=== PATIENT | female | born 1950 | race Caucasian/White ===

== ENCOUNTER → 2020-04-06 13:54 | Outpatient (CLI) | payer MEDICARE, OTHER, SELFPAY ==
--- NOTE | 2020-04-06 | DI.MG.S_ITS ---
BILATERAL DIGITAL SCREENING MAMMOGRAM 3D/2D WITH CAD: 04/06/2020 CLINICAL: Routine screening. Comparison is made to exams dated: 01/24/2011 mammogram, 02/01/2011 mammogram, and 04/07/2014 mammogram - [facility]. The tissue of both breasts is extremely dense, which lowers the sensitivity of mammography. Current study was also evaluated with a Computer Aided Detection (CAD) system. No significant masses, calcifications, or other findings are seen in either breast. There has been no significant interval change. IMPRESSION: NEGATIVE There is no mammographic evidence of malignancy. A 1 year screening mammogram is recommended. This exam was interpreted at Station ID: [id number]. NOTE: For mammograms, a report in lay terms will be sent to the patient. Approximately 15% of breast malignancies will not be visualized mammographically. In the management of a palpable breast mass, a negative mammogram must not discourage biopsy of a clinically suspicious lesion. Electronically Signed By: Joanne diaz/marcelo:04/12/2020 13:36:52 letter sent: Normal Exam ACR BI-RADS Category 1: Negative [id number]
== END ==
PROVIDERS: Family Provider Nurse Practitioner Family; PCP Family Medicine; Referring Provider Family Medicine; Visit Provider Family Medicine
DX: Z12.31 Encounter for screening mammogram for malignant neoplasm of breast (principal)
CPT/HCPCS: 77063; 77067

== ENCOUNTER 2020-05-13 05:38 | Emergency (ER) | payer MEDICARE, OTHER, SELFPAY ==
--- NOTE | 2020-05-13 05:43 | ED.EAR ---
HPI - Ear Problem General Chief complaint: Ear Stated complaint: Has an ear infection Time Seen by Provider: 05/13/20 05:43 Source: patient Mode of arrival: Ambulatory Limitations: no limitations History of Present Illness HPI Narrative: This is a 69-year-old female who comes to the emergency department with complaint of right ear pain. Patient states started 2:00 a.m.. She does not appreciate any swelling, no redness or warmth. No decrease of hearing, patient has not had any discharge. She states that she has not tried any [id number]-[id number] pain medications. Patient does use Q-tips but usually just use the mom the outer ear. She does not swim. She has not had any foreign bodies. She has not had similar symptoms in the past. She does not have any pain radiating elsewhere. Patient denies any other medical issues. She denies any current medications. She denies any allergies to medications. Related Data Home Medications Medication Instructions Recorded Confirmed ESTROGENS CONJUGATED VAG - 0 VAGINAL * DOSE/FREQUENCY #0 02/22/07 (Premarin) Venlafaxine Hydrochloride (Effexor) 0 PO * UK DOSE/FREQUENCY #0 02/22/07 BusPIRone Hydrochloride (BUSPAR~) 10 mg PO #0 tab 01/18/13 Review of Systems Review of Systems ROS Unobtainable: All systems reviewed & are unremarkable except as noted in HPI and below Patient History Social History Smoking Status: Never smoker Exam Narrative Exam Narrative: GEN: well nourished, well appearing female, alert and oriented x 3, patient appears to be in mild distress. HEENT: Atraumatic, pupils are equal round reactive to light, extraocular movements are intact, nares are clear, external pinna has no changes bilaterally, Left TM is are clear, right TM has erythema and some mild swelling of the canal, there is some erythema along the edge of the TM but no bulge, fluid collection or loss of light reflex. Throat is clear without any exudates, erythema, tonsillar enlargement or uvular deviation HEART: Regular rate and rhythm without murmur, clicks, rubs. No carotid bruits, pulses are equal in upper and lower extremities LUNGS:Lungs clear to auscultation, no wheezes, rales, crackles, chest moves symmetrically ABD:bowel sounds normal, soft, non-tender, no guarding, rebound, rigidity, no masses noted, no hepatosplenomegaly MSCL: Non-tender, full range of motion, normal gait NEURO:CN 2-12 intact, sensation normal SKIN: no erythema. Initial Vital Signs Initial Vital Signs: Vital Signs Temperature 97.1 F L 05/13/20 05:50 Pulse Rate 81 05/13/20 05:50 Respiratory Rate 17 05/13/20 05:50 Blood Pressure 141/63 H 05/13/20 05:50 Pulse Oximetry 97 05/13/20 05:50 Course Orders Ordered: Discontinued Medications Ibuprofen (Ibuprofen 400 Mg Tablet) 800 mg PO NOW ONE Stop: 05/13/20 05:50 Last Admin: 05/13/20 05:57 Dose: 800 mg Documented by: BRI Lidocaine/Sodium Bicarbonate (Lido 1%/Sod Bicarb 8.4% (10ml) 10 Ml Syringe) 10 ml INJ NOW ONE Stop: 05/13/20 05:50 Last Admin: 05/13/20 05:59 Dose: 1 ml Documented by: BRI Ofloxacin (Ofloxacin 0.3% Ophth Prepack) 1 bottle MISC SEEINSTR ONE Stop: 05/13/20 05:50 Last Admin: 05/13/20 05:58 Dose: 5 drops Documented by: BRI Vital Signs Vital signs: Vital Signs - 8 hr 05/13/20 05:50 Temperature 97.1 F L Pulse Rate 81 Respiratory Rate 17 Blood Pressure 141/63 H Pulse Oximetry 97 Discharge Plan Departure Patient Disposition: Home Clinical Impression: Otitis externa Instructions: DI for Otitis Externa Activity Restrictions/Additional Instructions: Follow up with your physician if your symptoms are not improving in the next 2-3 days. Continue tylenol and/or ibuprofen as needed. Use ofloxacin drops, 5 drops into the right ear twice daily x 7 days Return to the ER for fevers, increasing swelling or pain, loss of hearing, swelling of the face, neck or throat or other new or concerning symptoms. Prescriptions: No Action ESTROGENS CONJUGATED VAG - (Premarin) 0 Vaginal * UK DOSE/FREQUENCY Qty: 0 RF: 0 Venlafaxine Hydrochloride (Effexor) 0 PO * UK DOSE/FREQUENCY Qty: 0 RF: 0 BusPIRone Hydrochloride (BUSPAR~) 10 mg PO Qty: 0 RF: 0 Referrals: Rebecca Meehan DO [Primary Care Provider] -
[2020-05-13 05:50] VITALS: BP 141/63; PULSE 81; RESP 17; TEMP 36.2; O2SAT 97; BMI 21.2
[2020-05-13] MEDS: IBUPROFEN 400 MG TABLET 800 MG PO (05:57)
[2020-05-13] MEDS: OFLOXACIN 0.3% OPHTH PREPACK 1 BOTTLE MISC (05:58)
[2020-05-13] MEDS: LIDO 1%/SOD BICARB 8.4% (10ML) 10 ML SYRINGE INJ (05:59)
== END 2020-05-13 06:32 | disposition home or self-care (01) ==
PROVIDERS: Emergency Provider Emergency Medicine; Family Provider Nurse Practitioner Family; PCP Family Medicine
DX: H60.91 Unspecified otitis externa, right ear (principal)
CPT/HCPCS: 99281; 99283

== ENCOUNTER → 2021-04-24 13:54 | Outpatient (ROUT) | payer MEDICARE, OTHER, SELFPAY ==
[2021-04-24 15:09] LABS: Influenza A - CEPHEID Flu A NEGATIVE (NEGATIVE); Influenza B - CEPHEID Flu B NEGATIVE (NEGATIVE)
== END ==
PROVIDERS: Family Provider Nurse Practitioner Family; PCP Family Medicine; Visit Provider Internal Medicine
DX: R05.8 Other specified cough (principal)
CPT/HCPCS: 87502

== ENCOUNTER 2022-06-08 23:43 | Emergency (ER) | payer MEDICARE, OTHER, SELFPAY ==
[2022-06-08 23:49] VITALS: BP 185/90; PULSE 85; RESP 22; TEMP 36.6; O2SAT 97; BMI 22.6
[2022-06-09 00:33] LABS: Add Manual Diff / Slide Review NO; Basophils Absolute Auto 0 /uL (0-100); Basophils Percent Auto 0.5 % (0-2); Eosinophils Absolute Auto 200 /uL (0-450); Eosinophils Percent Auto 2.8 % (2-4); Hematocrit 39.5 % (36-46); Hemoglobin 13.5 g/dL (12.0-16.0); Lymphocytes Absolute Auto 2600 /uL (1100-4500); Lymphocytes Percent Auto 38.7 % (25-40); Mean Corpuscular HGB Conc 34.3 % (30-36); Mean Corpuscular Hemoglobin 31.6 PG (26-34); Mean Corpuscular Volume 92.2 fL (80-100); Monocytes Absolute Auto 600 /uL (0-900); Monocytes Percent Auto 9.2 % (3-14); Neutrophils Absolute Auto 3300 /uL (1500-7000); Neutrophils Percent Auto 48.8 % (50-75); Platelet Count 232 X10^3/uL (150-400); Red Blood Cell Count 4.28 X10^6/uL (4.0-5.2); Red Cell Distribution Width 12.8 % (11.6-14.8); White Blood Cell Count 6.7 X10^3/uL (4.5-11.0)
[2022-06-09 00:37] LABS: Alanine Aminotransferase 166 IU/L (<35); Albumin 4.4 g/dL (3.5-5.0); Albumin Globulin Ratio 1.4 (1.0-2.8); Alkaline Phosphatase 181 U/L (38-126); Aspartate Aminotransferase 319 IU/L (14-36); BUN Creatinine Ratio 30.4 (6-22); Bilirubin Total 0.5 mg/dL (0.2-1.3); Blood Urea Nitrogen 21 mg/dL (7-17); Calcium 9.4 mg/dL (8.4-10.2); Carbon Dioxide 31 mmol/L (22-32); Chloride 100 mmol/L (98-107); Estimated Glomerular Filt Rate > 60 mL/min (>60); Globulin 3.1 g/dL (1.7-4.1); Glucose 94 mg/dL (80-110); HEMOLYSIS 32 (0-50); Lipase 315 U/L (23-300); Sodium 136 mmol/L (137-145); Total Protein 7.5 g/dL (6.3-8.2)
--- NOTE | 2022-06-09 00:42 | DI.CT.S_ITS ---
PROCEDURE: CT ABDOMEN PELVIS W CON INDICATIONS: Generalized abdominal tenderness TECHNIQUE: After the administration of IV contrast, axial sections were acquired from the lung bases to the pubic symphysis. Coronal and sagittal reformats were performed. For radiation dose reduction, the following was used: automated exposure control, adjustment of mA and/or kV according to patient size. COMPARISON: None. FINDINGS: Image quality: Excellent. Lung bases: There is mild scarring or atelectasis within the left lingula. Heart: Heart is normal in size. ABDOMEN: Liver: No mass lesion. Gallbladder: Within normal limits without calcified gallstones. Biliary ducts: No biliary ductal dilatation. Pancreas: No peripancreatic fat stranding or fluid collections. Spleen: Normal in size. Adrenal Glands: No adrenal nodules. Kidneys and Ureters: No hydronephrosis. Stomach and Bowel: There is mild concentric wall thickening in the gastric antrum. Small and large bowel loops are normal in caliber and wall thickness. The appendix is normal in appearance. Peritoneum: No abnormal intraperitoneal fluid. No free air. Ventral Wall: No hernia. Abdominal Nodes: No retroperitoneal or mesenteric adenopathy by size criteria. Vessels: Aorta and inferior vena cava are normal in size. PELVIS: Pelvic Organs: Unremarkable. Bladder: Unremarkable. Pelvic Nodes: No enlarged lymph nodes. Miscellaneous: No inguinal hernias are seen. Bones: Visualized osseous structures demonstrate no suspicious focal lesions. IMPRESSION: 1. Mild gastric wall thickening in the antrum may reflect a gastritis. 2. Elsewhere, no definite acute intra-abdominal abnormality. Dictated by: David Edgar M.D. on 06/09/2022 at 1:34 Approved by: David Edgar M.D. on 06/09/2022 at 1:38
--- NOTE | 2022-06-09 00:42 | ED_ITS ---
HPI - General Adult General Chief complaint: Abdominal Pain Stated complaint: abd pain Time Seen by Provider: 06/09/22 00:32 Source: patient and family () Mode of arrival: Ambulatory Limitations: no limitations History of Present Illness HPI narrative: Patient is a 72-year-old female who is here for evaluation of upper abdominal discomfort. She states that the symptoms have actually been off and on for the past several weeks but has become more consistent over the past week and then has become consistent over the past 24 hours. Some nausea no vomiting. No diarrhea. No recent travel. No recent antibiotics. No prior abdominal surgeries. States the pain does radiate to her back as well. No fevers. Does not notice anything particular that causes her pain to be better worse. She did see her primary doctor's office today. Had lab work obtained. Was told to come to the emergency department if her symptoms worsen. Related Data Home Medications Medication Instructions Recorded Confirmed ESTROGENS CONJUGATED VAG - 0 vaginal * DOSE/FREQUENCY ##0 02/22/07 (Premarin) Venlafaxine Hydrochloride (Effexor) 0 PO * DOSE/FREQUENCY ##0 02/22/07 BusPIRone Hydrochloride (BUSPAR~) 10 mg PO #0 tabs 01/18/13 Previous Rx's Medication Instructions Recorded hydrocodone 5 mg-acetaminophen 325 1 tab PO Q4-6H PRN pain #10 tabs 06/09/22 mg tablet ondansetron 4 mg disintegrating 4 mg PO Q6H PRN nausea and 06/09/22 tablet vomiting #10 tabs Allergies Allergy/AdvReac Type Severity Reaction Status Date / Time No Known Drug Allergies Allergy Verified 06/09/22 03:37 Review of Systems Constitutional Constitutional: Reports system reviewed and no additional complaints, except as documented Cardiovascular Cardiovascular: Reports system reviewed and no additional complaints, except as documented Respiratory Respiratory: Reports system reviewed and no additional complaints, except as documented Gastrointestinal Gastrointestinal: Reports system reviewed and no additional complaints, except as documented Genitourinary Genitourinary: Reports system reviewed and no additional complaints, except as documented Integumentary/Breasts Skin/Breast: Reports system reviewed and no additional complaints, except as documented Hematologic/Lymphatic On Anticoagulants: No Patient History Social History Smoking Status: Never smoker Smoking Status: Never smoker alcohol intake frequency: a few times a week Substance Use Type: does not use Exam Initial Vital Signs Initial Vital Signs: Vital Signs Temperature 97.8 F 06/08/22 23:49 Pulse Rate 85 06/08/22 23:49 Respiratory Rate 22 06/08/22 23:49 Blood Pressure 185/90 H 06/08/22 23:49 Pulse Oximetry 97 06/08/22 23:49 Oxygen Delivery Method 06/08/22 23:49 HENMT Head: normal to inspection and normocephalic Resp Effort & Inspection: normal respiratory effort Auscultation: clear to auscultation bilaterally Cardio Rate: regular rate Rhythm: regular rhythm GI Inspection: normal to inspection and non-distended Palpation: soft, No firm and tender (Epigastric and right upper quadrant) Back/Spine/Pelvis Back: No CVA tenderness Extrem General: normal to inspection and capillary refill normal Course Orders Ordered: ED Orders 06/09/22 00:04 EKG-12 Lead Stat 06/09/22 00:10 Complete Blood Count AUTO DIFF Stat Comprehensive Metabolic Panel Stat Lipase Stat 06/09/22 00:42 CT abdomen pelvis w con Stat 06/09/22 00:43 US abdomen limited Stat Discontinued Medications Hydrocodone Bitart/Acetaminophen (Hydrocodone/Acet 5/325 Prepack) 1 bottle MISC SEEINSTR ONE Stop: 06/09/22 04:00 Morphine Sulfate (Morphine 4 Mg/Ml Inj) 4 mg IV NOW ONE Stop: 06/09/22 02:59 Last Admin: 06/09/22 03:08 Dose: 4 mg Documented By: CHASE Ondansetron HCl (Ondansetron 4 Mg/2 Ml Inj) 4 mg IV NOW ONE Stop: 06/09/22 02:59 Last Admin: 06/09/22 03:08 Dose: 4 mg Documented By: CHASE Ondansetron HCl (Ondansetron 4 Mg Odt Prepack) 1 bottle MISC SEEINSTR ONE Stop: 06/09/22 04:00 Vital Signs Vital signs: Vital Signs - 8 hr 06/08/22 23:49 Temperature 97.8 F Pulse Rate 85 Respiratory Rate 22 Blood Pressure 185/90 H Pulse Oximetry 97 Oxygen Delivery Method Room Air Medical Decision Making Differential Diagnosis Differential Diagnosis: Had her abdominal surgical pathology, pyelonephritis, reflux, GERD and othe Condition is:: Improved Discussed with:: Dr. Maral with General surgery Lab Data Lab results reviewed: Yes I reviewed the patient's lab results. 06/09/22 00:10 06/09/22 00:10 Labs: Lab Results 06/09/22 06/09/22 Range/Units 00:10 00:10 WBC 6.7 (4.5-11.0) X10^3/uL RBC 4.28 (4.0-5.2) X10^6/uL Hgb 13.5 (12.0-16.0) g/dL Hct 39.5 (36-46) % MCV 92.2 (80-100) fL MCH 31.6 (26-34) PG MCHC 34.3 (30-36) % RDW 12.8 (11.6-14.8) % Plt Count 232 (150-400) X10^3/uL Neut % (Auto) 48.8 L (50-75) % Lymph % (Auto) 38.7 (25-40) % Foster % (Auto) 9.2 (3-14) % Eos % (Auto) 2.8 (2-4) % Baso % (Auto) 0.5 (0-2) % Neut # (Auto) 3300 (3342-0403) /uL Lymph # (Auto) 2600 (5253-9470) /uL Foster # (Auto) 600 (0-900) /uL Eos # (Auto) 200 (0-450) /uL Baso # (Auto) 0 (0-100) /uL Sodium 136 L (137-145) mmol/L Potassium 4.0 (3.4-5.1) mmol/L Chloride 100 (98-107) mmol/L Carbon Dioxide 31 (22-32) mmol/L BUN 21 H (7-17) mg/dL Creatinine 0.69 (0.52-1.04) mg/dL Estimated GFR > 60 (>60) mL/min BUN/Creatinine Ratio 30.4 H (6-22) Glucose 94 (80-110) mg/dL Calcium 9.4 (8.4-10.2) mg/dL Total Bilirubin 0.5 (0.2-1.3) mg/dL AST 319 H (14-36) IU/L ALT 166 H (<35) IU/L Alkaline Phosphatase 181 H (38-126) U/L Total Protein 7.5 (6.3-8.2) g/dL Albumin 4.4 (3.5-5.0) g/dL Globulin 3.1 (1.7-4.1) g/dL Albumin/Globulin Ratio 1.4 (1.0-2.8) Lipase 315 H (23-300) U/L Urine Dip Bedside Urine Glucose Negative Bedside Urine Bilirubin - Negative Bedside Urine Ketone - Negative Urine Specific Dexter 1.010 Bedside Urine Occult Blood - Negative Bedside Urine pH 7.5 Bedside Urine Protein - Negative Bedside Urine Urobilinogen - Negative Bedside Urine Nitrite - Negative Bedside Urine Leukocytes + 70 Esterase Point of care testing: Urine Dip Bedside Urine Glucose Negative Bedside Urine Bilirubin - Negative Bedside Urine Ketone - Negative Urine Specific Dexter 1.010 Bedside Urine Occult Blood - Negative Bedside Urine pH 7.5 Bedside Urine Protein - Negative Bedside Urine Urobilinogen - Negative Bedside Urine Nitrite - Negative Bedside Urine Leukocytes + [address] scan - abdomen/pelvis: Radiologist's Impression: [address] [address] [address] Scan Report Signed Patient: Bertha Lane MR#: [id number] : 1950 Acct:[id number] Age/Sex: 72 / F Date of Service: 06/09/22 Loc: ED Accession Number: [id number] ?? Procedure: CT abdomen pelvis w con Ordering Provider: Tip Thayer D.O. PROCEDURE:? CT ABDOMEN PELVIS W CON ? INDICATIONS:? Generalized abdominal tenderness ? TECHNIQUE:? After the administration of IV contrast, axial sections were acquired from the lung bases to the pubic symphysis.? Coronal and sagittal reformats were performed.? For radiation dose reduction, the following was used:? automated exposure control, adjustment of mA and/or kV according to patient size. ? COMPARISON:? None. ? FINDINGS:? Image quality:? Excellent.? ? Lung bases:? There is mild scarring or atelectasis within the left lingula.? ? Heart:? Heart is normal in size. ? ? ABDOMEN: Liver:? No mass lesion. Gallbladder:? Within normal limits without calcified gallstones.? ? Biliary ducts:? No biliary ductal dilatation.? ? Pancreas:? No peripancreatic fat stranding or fluid collections.? ? Spleen:? Normal in size.? ? Adrenal Glands:? No adrenal nodules.? ? Kidneys and Ureters:? No hydronephrosis.? ? ? Stomach and Bowel:? There is mild concentric wall thickening in the gastric antrum.? Small and large bowel loops are normal in caliber and wall thickness.? The appendix is normal in appearance. Peritoneum:? No abnormal intraperitoneal fluid.? No free air.? ? Ventral Wall: ? No hernia.? Abdominal Nodes:? No retroperitoneal or mesenteric adenopathy by size criteria.? Vessels:? Aorta and inferior vena cava are normal in size.? ? PELVIS: Pelvic Organs:? Unremarkable.? ? Bladder:? Unremarkable.? ? Pelvic Nodes: No enlarged lymph nodes.? Miscellaneous: No inguinal hernias are seen. ? ? ? Bones:? Visualized osseous structures demonstrate no suspicious focal lesions. ? IMPRESSION:? ? 1. Mild gastric wall thickening in the antrum may reflect a gastritis. ? 2. Elsewhere, no definite acute intra-abdominal abnormality. ? ? Dictated by: David Edgar M.D. on 06/09/2022 at 1:34 ? ? Approved by: David Edgar M.D. on 06/09/2022 at 1:38? US - abdomen: Radiologist's Impression: [place] [address] Ultrasound Report Signed Patient: Bertha Lane MR#: [id number] : 1950 Acct:[id number] Age/Sex: 72 / F Date of Service: 06/09/22 Loc: ED Accession Number: [id number] ?? Procedure: US abdomen limited Ordering Provider: Tip Thayer D.O. PROCEDURE: US ABDOMEN LIMITED ? INDICATIONS:? RUQ PAIN ? TECHNIQUE:? Real-time focused scanning was performed of the abdomen, with image docum entation.? ? COMPARISON:? [facility], CT, CT ABDOMEN PELVIS W CON, 06/09/2022, 0:48. ? FINDINGS:? ? The liver demonstrates increased no focal mass lesions.? There is increased hepatic echogenicity suggestive of fatty infiltration.? ? The gallbladder demonstrates a few small mobile gallstones.? No gallbladder wall thickening or pericholecystic fluid.? Patient was reportedly tender on examination. ? No intra or extrahepatic biliary ductal dilatation. ? Visualized pancreas appears unremarkable sonographically. ? ? IMPRESSION:? ? 1. Cholelithiasis without definite evidence of cholecystitis. ? ? Dictated by: David Edgar M.D. on 06/09/2022 at 2:38 ? ? Approved by: David Edgar M.D. on 06/09/2022 at 2:40? ECG Data Attestation: I personally reviewed and interpreted this ECG as follows: Interpretation: Sinus rhythm Ventricular rate 80 Normal axis Normal QRS Normal QTC No ST T wave changes MDM Narrative Medical decision making narrative: CT scan shows gastritis. She has elevation in her LFTs and alk-phos and a very slight elevation in lipase but her bilirubins unremarkable. Right upper quadrant ultrasound shows cholelithiasis without signs of acute cholecystitis. She does have right upper quadrant tenderness on my exam. Given her history of discomfort that was intermittent and has become more persistent I have a suspicion that this is symptomatic coli lithiasis. I did discuss the case with Dr. Alicia on-call for General surgery who stated that if the patient's symptoms are controlled with medication she could be discharged home and he would follow her up in the clinic next week. If her symptoms are not controlled in she can be admitted to the hospital for surgical intervention. After pain medications and some time her symptoms greatly improved. Had a long discussion with the patient and her regarding options about admission to the hospital versus outpatient. After this discussion they opted for outpatient treatment. They were given strict return precautions. They expressed understanding and agreement. Discharge Plan Departure Patient Disposition: Home Clinical Impression: Cholelithiasis, Gastritis Instructions: Gallstones (Alternative Therapy), DI for Gallstones Activity Restrictions/Additional Instructions: On Saturday morning contact Dr. Alicia at the number provided below for a follow- up the beginning of next week to discussed having her gallbladder removed. Until then use the pain medicine and nausea medicine as directed. If your symptoms worsen you develop new symptoms such as fevers or worsening pain please return to the emergency department. I do recommend a bland diet over the next couple days. Prescriptions: New hydrocodone-acetaminophen 5-325 mg tablet 1 tab PO Q4-6H PRN (Reason: pain) Qty: 10 0RF ondansetron 4 mg tablet,disintegrating 4 mg PO Q6H PRN (Reason: nausea and vomiting) Qty: 10 0RF No Action ESTROGENS CONJUGATED VAG - (Premarin) 0 Vaginal * UK DOSE/FREQUENCY Qty: 0 Venlafaxine Hydrochloride (Effexor) 0 PO * UK DOSE/FREQUENCY Qty: 0 BusPIRone Hydrochloride (BUSPAR~) 10 mg PO Qty: 0 Referrals: Raphael Alicia MD [Physician] - Rebecca Meehan DO [Primary Care Provider] - Stand Alone Forms: Patient Portal/API
--- NOTE | 2022-06-09 00:43 | DI.US.S_ITS ---
PROCEDURE: US ABDOMEN LIMITED INDICATIONS: RUQ PAIN TECHNIQUE: Real-time focused scanning was performed of the abdomen, with image documentation. COMPARISON: [facility], CT, CT ABDOMEN PELVIS W CON, 06/09/2022, 0:48. FINDINGS: The liver demonstrates increased no focal mass lesions. There is increased hepatic echogenicity suggestive of fatty infiltration. The gallbladder demonstrates a few small mobile gallstones. No gallbladder wall thickening or pericholecystic fluid. Patient was reportedly tender on examination. No intra or extrahepatic biliary ductal dilatation. Visualized pancreas appears unremarkable sonographically. IMPRESSION: 1. Cholelithiasis without definite evidence of cholecystitis. Dictated by: David Edgar M.D. on 06/09/2022 at 2:38 Approved by: David Edgar M.D. on 06/09/2022 at 2:40
[2022-06-09] MEDS: MORPHINE 4 MG/ML INJ IV (03:08)
[2022-06-09] MEDS: ONDANSETRON 4 MG/2 ML INJ IV (03:08)
[2022-06-09 04:23] VITALS: BP 149/83; PULSE 72; RESP 16; TEMP 36.8; O2SAT 98
[2022-06-09] MEDS: HYDROCODONE/ACET 5/325 PREPACK 1 BOTTLE MISC (04:23)
[2022-06-09] MEDS: ONDANSETRON 4 MG ODT PREPACK 1 BOTTLE MISC (04:23)
== END 2022-06-09 04:25 | disposition home or self-care (01) ==
PROVIDERS: Emergency Provider Emergency Medicine; Family Provider Nurse Practitioner Family; PCP Family Medicine
DX: K80.20 Calculus of gallbladder without cholecystitis without obstruction (principal); K29.70 Gastritis, unspecified, without bleeding
CPT/HCPCS: 36415; 74177; 76705; 80053; 81003; 83690; 85025; 93005; 96374; 96375; 99284; 99285; J2270; J2405; Q9967

== ENCOUNTER 2022-07-04 10:00 | Day surgery (SDC) | payer MEDICARE, OTHER, SELFPAY ==
[2022-07-02 10:49] VITALS: BMI 21.9
[2022-07-04] VITALS (12 sets, daily range): BP systolic 74–143; BP diastolic 39–75; PULSE 50–84; RESP 12–19; TEMP 36.2–36.8; O2SAT 95–100; BMI 21.9
--- NOTE | 2022-07-04 | PATH_ITS ---
[facility] Accession Number: [id number] No. of containers..01 Tissue . 01 Material submitted: . gallbladder - GALLBLADDER . 01 Diagnosis: Gallbladder, Cholecystectomy: Chronic cholecystitis and cholelithiasis. Negative for dysplasia and malignancy. . [facility] 07/10/2022 1529 Local . 01 Electronically signed: . Syeda James MD, Pathologist NPI- [id number] . 01 Gross description: . Received in formalin labeled gallbladder is a 5.5 cm in length by 2.0 cm in diameter unopened intact gallbladder with a green-fishman smooth and glistening anterior serosal surface and roughened posterior bed. The wall is thickened and indurated, ranging up to 0.3 cm. The mucosa is green-brown and granular. Within the lumen and embedded in the cystic duct are several 0.1 and 0.2 cm round green calculi. The cystic duct margin is marked with blue ink. [employer] sections are submitted in A1. ([id number]) /MRV 07/05/2022 1725 Local . 01 Pathologist provided ICD-10: K80.50 . 01 CPT . 942540 Specimen Comment: A courtesy copy of this report has been sent to [phone] Performed at: 01 [facility] [address] [place] [address] [address], [place], [place] [id number] MD David Jones MD Phone: [phone]
[2022-07-04] MEDS: LACTATED RINGERS 1,000 ML 42 ML IV (11:00)
--- NOTE | 2022-07-04 11:14 | PM.PREOP ---
Pre-operative Note Interval Note History & Physical reviewed/Exam performed by Physician: Yes Changes to H&P: No
[2022-07-04] MEDS: ACETAMINOPHEN 325 MG TABLET 975 MG PO (11:21)
[2022-07-04] MEDS: CEFAZOLIN 2 GM/100 ML PREMIX 100 ML IV (11:35)
--- NOTE | 2022-07-04 11:57 | SUR.OPER ---
Supine on padded OR bed, head on pillow, safety belt at thigh, left arm padded and tucked at side. Right arm secured on padded arm board <90 degrees abduction. Legs uncrossed. Padded footboard in place with gel pad under heels. Tape over blanket to secure lower legs.
[2022-07-04] MEDS: BUPIVACAINE 0.5% W/ EPI (PF) 30 ML VIAL INJ (12:07)
--- NOTE | 2022-07-04 12:35 | P.OP_ITS ---
Operative Date/Time/Diagnoses Date of procedure: 07/04/22 Time of procedure: 12:35 Pre-op diagnosis: biliary colic Post-op diagnosis: same Procedure & Clinicians Procedure: Laparoscopic cholecystectomy Same procedure as scheduled: Yes Indications: 72F with symptoms and radiographic findings consistent with biliary colic Surgeon: Raphael Alicia Anesthesia Type: General Operative Notes Findings: critical view of safety established. No evidence of acute cholecystitis. Estimated Blood Loss (mL): 10 Procedure in detail: The patient was placed supine on the table and bilateral lower extremity compression devices were applied. Anesthesia was induced they were intubated with an endotracheal tube and received 2g of Ancef. A time-out was performed. They were prepped and draped in sterile fashion. An infraumbilical incision was made. The fascia was elevated incised and the abdomen was entered atraumatically. A blunt tip 12mm balloon trocar was then inserted, pneumoperitoneum was established and inspection of the abdomen demonstrated no evidence of injury. They were placed head up and right side up and then a 11 mm port was placed high in the epigastrium and two 5mm in the right upper quadrant. The gallbladder was grasped by the fundus and retracted over the liver and retracted laterally by the infundibulum. Gallbladder was grossly normal its appearance no evidence of acute cholecystitis. Using electrocautery the lateral plane between the gallbladder and the liver was opened towards the fundus. The gallbladder was then retracted laterally and the medial plane was developed in the same manner. With the gallbladder mobilized the bottom of the cystic plate was visualized. The hepatocystic triangle was meticulosly skeletonized with blunt dissection of fat and fibrous tissue from both the front and the back. Only two structures were then clearly seen entering the gallbladder the cystic duct and the cystic artery. With the critical view of safety fully established the cystic duct was clipped twice proximally and once distally using the 10 mm Weck hemoclip applied under direct visualization and then sharply divided. The cystic artery was divided in the same fashion. The gallbladder was removed from the liver bed using electro cautery. The liver bed was then inspected for hemostasis and this was achieved. The abdomen was irrigated with sterile saline and inspection was made that showed the clips in good position. The specimen was removed using Endo-Catch. The abdomen was desufflated. The umbilical fasci a was closed with 0 Vicryl in a [id number] fashion under direct visualization. Skin incisions were irrigated and closed with 4-0 Monocryl. 30 ml of 0.25% bupivacaine was infiltrated into the subcutaneous tissue of the incisions. The wounds were sealed with Dermabond. Patient emerged from anesthesia was extubated and transferred to recovery in stable condition. The sponge and instrument count at the end of the operation was correct. Complications: none Post-operative Condition: stable Disposition: same day surgery
[2022-07-04] MEDS: OXYCODONE IR 5 MG TABLET PO ×3 (12:57→15:06)
[2022-07-04] MEDS: ONDANSETRON 4 MG/2 ML INJ IV (12:59)
[2022-07-04] MEDS: KETOROLAC 30 MG/ML VIAL 15 MG IV (13:12)
[2022-07-04] MEDS: HYDROMORPHONE 2 MG INJ IV ×4 (14:10→14:35)
--- NOTE | 2022-07-04 14:39 | SUR.PHASEII ---
called DELON Anthony notified her that patient is having 10/10 pain mid umbilical area. VSS. nno further orders. continue with ordered meds for pain.
[2022-07-04] MEDS: fentaNYL 100 MCG/2 ML INJ IV ×2 (14:51→15:00)
--- NOTE | 2022-07-04 14:57 | SUR.PHASEII ---
1445: called Gabrielle JERNIGAN, ordered 25-50 mcgs of Fentynal IV and oxyc9
--- NOTE | 2022-07-04 14:58 | SUR.PHASEII ---
1445: called Gabrielle ALMOND BLANCHER [facility] and new orders received to give another oxycodone 5mg and Fentanyl 25-50 mcg IV.
== END 2022-07-04 15:30 | disposition home or self-care (01) ==
PROVIDERS: Family Provider Nurse Practitioner Family; PCP Family Medicine; Referring Provider Surgery; Visit Provider Surgery
PROC: 0FT44ZZ Resection of Gallbladder, Percutaneous Endoscopic Approach (ICD-10-PCS; CPT 47562; principal; 2022-07-04 11:15)
DX: K80.10 Calculus of gallbladder with chronic cholecystitis without obstruction (principal)
CPT/HCPCS: 47562; 82962; J0690; J1170; J1885; J2405; J2704; J3010

== ENCOUNTER → 2023-06-12 12:54 | Outpatient (CLI) | payer MEDICARE, OTHER, SELFPAY ==
--- NOTE | 2023-06-12 12:56 | DI.RAD.S_ITS ---
Bone Density Report Name: ALESIA GUARDADO Age: 73 Sex: Female Ethnicity: White Date of : 1950 Indication: postmenopausal; screening for osteoporosis; Referring Provider: DEMARIO CASTILLO Study: Bone densitometry was performed. Exam Date: June 12, 2023 Accession number: [id number] Bone Density: Region BMD T-score Z-score Classification AP Spine(L1-L4) 1.263 2.0 4.2 Normal Femoral Neck (Left) 0.710 -1.3 0.7 Osteopenia Total Hip (Left) 0.920 -0.2 1.4 Normal Femoral Neck (Right) 0.710 -1.3 0.7 Osteopenia Total Hip (Right) 0.924 -0.1 1.5 Normal Total Hip Mean 0.922 -0.2 1.5 Normal World Health Organization criteria for BMD impression classify patients as: Normal (T-score at or above -1.0), Osteopenia (T-score between -1.0 and -2.5), or Osteoporosis (T-score at or below -2.5). 10-year Fracture Risk(1): Major Osteoporotic Fracture 9.5% Hip Fracture 1.3% Reported Risk Factors: [place] (), Neck BMD=0.710, BMI=23.8 (1) FRAX(R) Version 3.08. Fracture probability calculated for an untreated patient. Fracture probability may be lower if the patient has received treatment. Previous Exams: -- Region Exam Age BMD T-score BMD Change BMD Change Date g/cm2 vs Baseline vs Previous -- AP Spine (L1-L4) 06/12/2023 73 1.263 2.0 -0.027 (-2.1%)# -0.027 (-2.1%)# 10/01/2016 66 1.290 2.2 Total Hip(Left) 06/12/2023 73 0.920 -0.2 0.022 (2.5%)# 0.022 (2.5%)# 10/01/2016 66 0.898 -0.4 Total Hip(Right) 06/12/2023 73 0.924 -0.1 0.031 (3.5%)# 0.031 (3.5%)# 10/01/2016 66 0.893 -0.4 -- *Denotes significance at 95% confidence level, LSC for AP Spine = 0.022 g/cm2, LSC for Total Hip = 0.027 g/cm2 # Denotes dissimilar scan types or analysis methods Impression: The patient has low bone mass, based on the Left Femoral Neck T-score. The patient has an estimated ten-year risk of hip fracture of 1.3% and an estimated ten-year risk of major fracture of 9.5%, based on the WHO FRAX algorithm. No significant bone loss was observed. Discussion: BONE DENSITY IS LOW AT ONE OR MORE SKELETAL SITES. This patient's lowest T-score is low at one or more skeletal sites. It meets the World Health Organization's (WHO) criteria for low bone mass (T-score between -1.0 and -2.5). The patient's 10-year risk of fracture as calculated by FRAX is less than the threshold where pharmacological therapy is recommended by the National Osteoporosis Foundation (NOF). However, all treatment decisions require clinical judgment and consideration of individual patient factors, including patient preferences, comorbidities, previous drug use, risk factors not captured in the FRAX model (e.g., frailty, falls, vitamin D deficiency, increased bone turnover, interval significant decline in bone density) and possible under or overestimation of fracture risk by FRAX. The patient should follow a healthful lifestyle (good nutrition with adequate calcium and vitamin D, and appropriate weight-bearing exercise). Follow-Up: Consider repeating this study in 2 to 3 years to reassess this patient's status, or sooner if there is some new clinical indication. Reported by: [facility] HILARIO HUSSEIN M.D. on 06/12/2023 1:11:00 PM.
== END ==
PROVIDERS: Family Provider Nurse Practitioner Family; PCP Family Medicine; Referring Provider Internal Medicine; Visit Provider Internal Medicine
DX: Z78.0 Asymptomatic menopausal state (principal); M85.852 Other specified disorders of bone density and structure, left thigh
CPT/HCPCS: 77080

== ENCOUNTER → 2024-09-16 11:09 | Outpatient (CLI) | payer MEDICARE, OTHER, SELFPAY ==
[2024-09-16 11:54] LABS: Add Manual Diff / Slide Review NO; Basophils Absolute Auto 100 /uL (0-100); Eosinophils Absolute Auto 200 /uL (0-450); Eosinophils Percent Auto 2.7 % (2-4); Hematocrit 42.4 % (36-46); Hemoglobin 14.2 g/dL (12.0-16.0); Lymphocytes Absolute Auto 2400 /uL (1100-4500); Lymphocytes Percent Auto 34.2 % (25-40); Mean Corpuscular HGB Conc 33.5 % (30-36); Mean Corpuscular Hemoglobin 31.8 PG (26-34); Monocytes Absolute Auto 600 /uL (0-900); Monocytes Percent Auto 9.2 % (3-14); Neutrophils Absolute Auto 3600 /uL (1500-7000); Neutrophils Percent Auto 52.9 % (50-75); Platelet Count 242 X10^3/uL (150-400); Red Blood Cell Count 4.47 X10^6/uL (4.0-5.2); Red Cell Distribution Width 12.9 % (11.6-14.8); White Blood Cell Count 6.9 X10^3/uL (4.5-11.0)
[2024-09-16 12:19] LABS: Alanine Aminotransferase 27 IU/L (<35); Albumin 4.9 g/dL (3.5-5.0); Albumin Globulin Ratio 1.6 (1.0-2.8); Alkaline Phosphatase 92 U/L (38-126); Aspartate Aminotransferase 32 IU/L (14-36); BUN Creatinine Ratio 23.7 (6-22); Bilirubin Total 0.6 mg/dL (0.2-1.3); Blood Urea Nitrogen 22 mg/dL (7-17); C-Reactive Protein Quant < 0.5 mg/dL (<1.0); Carbon Dioxide 28 mmol/L (22-32); Chloride 99 mmol/L (98-107); Cholesterol 285 mg/dL (140-199); Estimated Glomerular Filt Rate > 60 mL/min (>60); Glucose 117 mg/dL (70-99); HEMOLYSIS < 15 (0-50); Potassium 4.5 mmol/L (3.4-5.1); Sodium 135 mmol/L (137-145); Total Protein 7.9 g/dL (6.3-8.2); Triglycerides 80 mg/dL (35-150)
[2024-09-16 12:27] LABS: LDL Cholesterol Direct 123 mg/dL (<100)
[2024-09-16 12:32] LABS: Progesterone, Total 2.27 ng/mL; Vitamin D 25 Hydroxy (D3) 101 ng/mL (30.0-100.0)
[2024-09-16 12:33] LABS: Free T3, Triiodothyronine Free 3.52 pg/mL (2.77-5.27); Free T4, Direct Thyroxine 0.67 ng/dL (0.78-2.19)
[2024-09-16 12:35] LABS: HDL Cholesterol 136 mg/dL (40-60); LDL Cholesterol Calculated 133 mg/dL (<100)
[2024-09-16 12:46] LABS: Cortisol Random 6.97 ug/dL
[2024-09-16 12:47] LABS: Thyroid Stimulating Hormone 2.52 uIU/mL (0.47-4.68)
[2024-09-16 12:50] LABS: Ferritin 158 ng/mL (11-264)
[2024-09-16 13:06] LABS: Vitamin B12 905 pg/mL (239-931)
== END ==
LOC: LAB 11:12
PROVIDERS: Family Provider Nurse Practitioner Family; Referring Provider Nurse Practitioner Family; Visit Provider Nurse Practitioner Family
DX: E34.8 Other specified endocrine disorders (principal)
CPT/HCPCS: 36415; 80053; 80061; 82306; 82533; 82607; 82627; 82670; 82728; 83090; 83721; 84144; 84305; 84402; 84403; 84439; 84443; 84481; 85025; 86140; 86304